=== PATIENT | female | born 1995 | race Two or more races ===

== ENCOUNTER 2025-02-06 14:15 | Inpatient (IN) | payer OTHER ==
[~2025-02-06] VITALS: Ht 162.6 cm; Wt 74.4 kg
[2025-02-14 17:32] VITALS: BP 112/74
[2025-02-14 18:32] LABS: BASO % 0.2 % (0.1-1.2); EOS # 0.06 (0.04-0.54); EOS % 0.5 % (0.7-7.0); LYMPH # 1.82 (1.18-3.74); LYMPH % 15.0 % (19.3-53.1); MEAN PLATELET VOLUME 11.30 fl (9.4-12.4); MONO # 0.88 (0.24-0.82); MONO % 7.3 % (4.7-12.5); NEUT # 9.27 (1.56-6.13); NEUT % 76.7 % (34.0-71.1); RED CELL DISTRIBUTION WIDTH 13.2 % (11.6-14.4)
[2025-02-14 18:54] LABS: INR < 0.93
[2025-02-14 19:00] LABS: ALT/SGPT 36.0 U/L (12-78); AST/SGOT 20.0 U/L (15-37); BILIRUBIN TOTAL 0.29 mg/dL (0.3-1.2); BUN CREA RATIO 16.0 (7.0-25.0); CREATININE SERUM 0.58 mg/dL (0.55-1.02); GFR 121.25; GLOBULINA 3.7 G/DL (2.4-3.5); GLUCOSE FASTING 76.0 mg/dL (65-100); OSMOLALITY SERUM 275.0 MOSM/KG (275-295)
[2025-02-14] MEDS ORDERED: RINGERS SOLUTION,LACTATED 1,000 ML IV SCH (19:30)
[2025-02-14] MEDS ORDERED: MISOPROSTOL 25 MCG TABLET VAG ONE (19:30)
[2025-02-14 20:44] VITALS: BP 114/77
[2025-02-14] MEDS ORDERED: MORPHINE SULFATE 4 MG/ML VIAL IV PRN (21:00)
[2025-02-14 23:55] VITALS: BP 116/78
[2025-02-15] VITALS (11 sets, daily range): BP systolic 91–123; BP diastolic 49–77
[2025-02-15] MEDS ORDERED: OXYTOCIN 500 ML IV ONE (07:15)
[2025-02-15] MEDS ORDERED: OXYTOCIN 20 UNITS/1000ML RL PIGGYBAG IV ONE (15:26)
[2025-02-15] MEDS ORDERED: CHLORHEXIDINE GLUCONATE 120 ML BOTTLE TOP ONE (15:26)
[2025-02-15] MEDS ORDERED: ERYTHROMYCIN BASE OPHT 1GM EACH TUBE OP ONE (15:26)
[2025-02-15] MEDS ORDERED: LIDOCAINE HCL 1% 10ML VIAL ONE (15:26)
[2025-02-15] MEDS ORDERED: OXYTOCIN 1,000 ML IV ONE (17:30)
[2025-02-15] MEDS ORDERED: CHLORHEXIDINE GLUCONATE 120 ML BOTTLE TOP SCH (17:30)
[2025-02-15] MEDS ORDERED: SENNA/DOCUSATE SODIUM 1 TAB TABLET PO SCH (21:00)
[2025-02-16 02:10] VITALS: BP 110/70
[2025-02-16 07:00] LABS: BASO % 0.2 % (0.1-1.2); EOS # 0.06 (0.04-0.54); EOS % 0.3 % (0.7-7.0); LYMPH # 2.69 (1.18-3.74); LYMPH % 12.6 % (19.3-53.1); MEAN PLATELET VOLUME 10.90 fl (9.4-12.4); MONO # 1.64 (0.24-0.82); MONO % 7.7 % (4.7-12.5); NEUT # 16.86 (1.56-6.13); NEUT % 78.5 % (34.0-71.1); RED CELL DISTRIBUTION WIDTH 13.3 % (11.6-14.4)
[2025-02-16 08:57] VITALS: BP 116/79
[2025-02-16] MEDS ORDERED: FERROUS SULFATE 325 MG TABLET.EC PO SCH (09:00)
[2025-02-16] MEDS ORDERED: PNV,CALCIUM 72/IRON/FOLIC ACID 1 TAB TABLET PO SCH (09:00)
[2025-02-16 13:39] VITALS: BP 124/69
[2025-02-16 17:05] VITALS: BP 122/85
[2025-02-17 01:20] VITALS: BP 96/62
[2025-02-17 09:01] VITALS: BP 110/75
== END 2025-02-17 12:22 | disposition home or self-care (01) | DRG 807 ==
LOC: LDR 14:15 → OB/GYN 02-15 17:18
PROVIDERS: Obstetrics & Gynecology Gynecology; ADMIT Obstetrics & Gynecology; ATTEND Obstetrics & Gynecology
PROC: 3E0P7VZ Introduction of Hormone into Female Reproductive, Via Natural or Artificial Opening (ICD-10-PCS; 2025-02-14)
PROC: 4A1HXCZ Monitoring of Products of Conception, Cardiac Rate, External Approach (ICD-10-PCS; 2025-02-14)
PROC: 10D07Z6 Extraction of Products of Conception, Vacuum, Via Natural or Artificial Opening (ICD-10-PCS; principal; 2025-02-15)
PROC: 0W8NXZZ Division of Female Perineum, External Approach (ICD-10-PCS; 2025-02-15)
PROC: 3E033VJ Introduction of Other Hormone into Peripheral Vein, Percutaneous Approach (ICD-10-PCS; 2025-02-15)
DX: O69.81X0 Labor and delivery complicated by cord around neck, without compression, not applicable or unspecified (principal); Z37.0 Single live birth; O66.5 Attempted application of vacuum extractor and forceps; Z3A.40 40 weeks gestation of pregnancy

== ENCOUNTER → 2025-02-06 | Outpatient (CLI) | payer OTHER | END | disposition home or self-care (01) | LOC: NST 16:04 | PROVIDERS: ATTEND Obstetrics & Gynecology Gynecology | DX: Z34.83 Encounter for supervision of other normal pregnancy, third trimester (principal) ==